=== PATIENT | male | born 1955 | race Caucasian/White ===

== ENCOUNTER 2023-07-26 09:45 | Outpatient (RCR) | payer MEDICARE, BC, SELFPAY | END 2023-09-27 13:37 | disposition home or self-care (01) | PROVIDERS: PCP Family Medicine; Visit Provider Family Medicine | DX: M25.511 Pain in right shoulder (principal); Z51.89 Encounter for other specified aftercare | CPT/HCPCS: 97110; 97140; 97162; 97535 ==